=== PATIENT | male | born 1980 | race Caucasian/White ===

== ENCOUNTER 2017-10-08 21:51 | Emergency (ER) | payer OTHER ==
[2017-10-09] MEDS ORDERED: Ondansetron ODT 8 MG TAB ONE (03:30)
--- NOTE | 2017-10-09 08:30 | RAD ---
CHEST 2 VIEWS: Date: 10/09/17 HISTORY: Impacted food bolus. Difficulty swallowing after eating. COMPARISON: None. FINDINGS: Normal cardiac silhouette. Pulmonary vessels and hilum are normal. Costophrenic angles are clear. No consolidation or mass. No pneumothorax or osseous abnormalities. IMPRESSION: No acute cardiopulmonary process. POS: OFF
== END 2017-10-09 04:55 | disposition home or self-care (01) ==
LOC: ERS 21:51
DX: T18.128A Food in esophagus causing other injury, initial encounter (principal)
CPT/HCPCS: 71046; 96374; J1610